=== PATIENT | female | born 1980 | race Caucasian/White ===

== ENCOUNTER → 2016-08-26 | Outpatient (CLI) | payer OTHER ==
--- NOTE | 2016-08-26 08:39 | US ---
"EXAMINATION TYPE: US abdomen complete DATE OF EXAM: 08/26/2016 7:17 AM COMPARISON: NONE CLINICAL HISTORY: R10.9 ABD PAIN. Pt states back pain that radiates to front of ABD x 5 months EXAM MEASUREMENTS: Liver Length: 13.7 cm Gallbladder Wall: 0.4 cm CBD: 0.4 cm Spleen: 8.2 cm Right Kidney: 10.4 x 3.7 x 4.6 cm Left Kidney: 10.7 x 4.7 x 4.0 cm TECHNOLOGIST IMPRESSION: Pancreas: wnl Liver: wnl Gallbladder: See below Evidence for sonographic Adams's sign: Yes CBD: wnl Spleen: wnl Right Kidney: wnl Left Kidney: wnl Upper IVC: wnl Abd Aorta: wnl The liver is homogenous. The intrahepatic portion of the IVC and visualized proximal, mid, and dista l abdominal aorta are within normal limits. Gallbladder is identified. Gallbladder has diffuse hypere choic material felt to reflect small stones or gallbladder sludge. There are additional shadowing mob ile gallstones identified. Gallbladder wall is minimally thickened at 4 mm. No pericholecystic fluid collection is identified. Common bile duct is unremarkable. The visualized portions of the pancreas are homogenous. The spleen is unremarkable. Kidneys are symmetric and free of hydronephrosis. No renal lesions are seen. IMPRESSION: There is gallbladder sludge and gallbladder stones with mild concentric gallbladder wall thickening and positive sonographic Adams's sign, in patient with pain acute cholecystitis cannot be excluded. Consider HIDA scan or surgical consultation. A Yellow message has been communicated to Ayo Gallegos MD via the [employer] | Critical Result sy stem on 08/26/2016 8:36 AM, Message ID [id number]."
== END | disposition home or self-care (01) ==
LOC: RADUSWWP 06:59
PROVIDERS: ATTEND Family Medicine
DX: K80.20 Calculus of gallbladder without cholecystitis without obstruction (principal); K82.8 Other specified diseases of gallbladder; R19.8 Other specified symptoms and signs involving the digestive system and abdomen
CPT/HCPCS: 76700

== ENCOUNTER → 2016-09-09 | Outpatient (CLI) | payer OTHER ==
--- NOTE | 2016-09-09 18:22 | NM ---
EXAMINATION TYPE: NM hepatobiliary wo EF DATE OF EXAM: 09/09/2016 5:58 PM COMPARISON: NONE HISTORY: Abdominal pain and cholecystitis TECHNIQUE: After the intravenous administration of 4.9 mCi Tc 99m Mebrofenin hepatobiliary scintigrap hy is performed. Immediate images post injection. FINDINGS: There is prompt uptake of the tracer by the liver that has normal size and contour. There is tracer i n the small bowel at 14 minutes which excludes obstruction of the common bile duct. Tracers mostly cl eared from the liver at one hour. Images were obtained up to 2 hours that show no evidence of any tra cer in the gallbladder. The remainder of the exam is unremarkable. IMPRESSION: No evidence of common bile duct obstruction. No focal liver defect. There is nonvisualization of the gallbladder consistent with cholecystitis and cystic duct obstructio n.
== END | disposition home or self-care (01) ==
LOC: RADNMMAIN 14:46
PROVIDERS: ATTEND Nurse Practitioner Family
DX: K81.9 Cholecystitis, unspecified (principal)
CPT/HCPCS: 78226; A9537

== ENCOUNTER 2016-10-29 07:55 | Day surgery (SDC) | payer OTHER ==
--- NOTE | 2016-10-17 08:50 | HP ---
DATE OF ADMISSION: 10/29/2016 CHIEF COMPLAINT: Chronic cholecystitis. HISTORY OF PRESENT ILLNESS: Patient is a 36-year-old female who starting in March had bad episodes of diarrhea associated with pain in the right upper quadrant and right side of her back. The patient has gallstones by ultrasound and a recent HIDA scan done in late August shows nonvisualization of the gallbladder consistent with cystic duct obstruction. The patient still had a mild right upper quadrant pain at times. She has modified her diet. Denies episodes of emesis. No change in the color of her skin, urine or stool. She did have a lab work showing normal liver enzymes. She has already seen GI and they are recommending cholecystectomy. Past medical history is asthma. Past surgical history is . MEDICATIONS: 1. Singulair. 2. Loratadine. 3. control. ALLERGIES: None. PHYSICAL EXAM: HEENT is normocephalic. Sclerae is nonicteric. CHEST: No deformities. ABDOMEN: Soft, mild right upper quadrant tenderness. No rebound or guarding. Extremities without edema. IMPRESSION: A 36-year-old female with chronic cholecystitis. PLAN: Will proceed with laparoscopic cholecystectomy on 10/29. The risks of bleeding, infection, biloma formation, common bile duct injury, retained CBD stone, trocar-related injury and conversion to an open procedure. Chronic diarrhea was also discussed as a potential risk. The patient understands and wishes to proceed.
[2016-10-24 11:19] VITALS: BMI 21.2
[~2016-10-29 07:55] MED LIST: DEXAMETHASONE SOD PHOSPHATE 10 MG/ML 1 ML VIAL IV ONE; HEPARIN SODIUM,PORCINE 5,000 UNIT/ML 1 ML VIAL SQ ONE; HYDROmorphone 1 MG/ML 1 ML SYRINGE IVP PRN; LACTATED RINGERS 1,000 ML IV SCH; LIDOCAINE 1% 20 ML VIAL (10MG/ML) FOR IV START INTRADERMA PRN; MIDAZOLAM 2 MG/2 ML VIAL IV PRN; ONDANSETRON 4 MG/2 ML VIAL IVP ONE; SCOPOLAMINE 1.5MG/72HR PATCH TRANSDERM ONE; ceFAZolin 2 GM in SODIUM CHLORIDE 0.9% 100 ML IVPB ONE
[2016-10-29] MEDS ORDERED: GLYCOPYRROLATE 0.2 MG/ML 2 ML VIAL ONE (09:27)
[2016-10-29] MEDS ORDERED: NEOSTIGMINE 1 MG/ML 10 ML VIAL ONE (09:27)
[2016-10-29] MEDS ORDERED: MIDAZOLAM 2 MG/2 ML VIAL ONE (09:27)
[2016-10-29] MEDS ORDERED: HYDROmorphone (PF) 1 MG/ML ONE (09:27)
[2016-10-29] MEDS ORDERED: PROPOFOL 10 MG/ML 20 ML VIAL IV ONE (09:27)
[2016-10-29] MEDS ORDERED: fentaNYL (PF) 50 MCG/ML 2 ML AMP ONE (09:27)
[2016-10-29] MEDS ORDERED: ROCURONIUM BROMIDE 10 MG/ML 10 ML VIAL IV ONE (09:27)
[2016-10-29] MEDS ORDERED: KETOROLAC 30 MG/ML 1 ML VIAL ONE (09:27)
[2016-10-29] MEDS ORDERED: LIDOCAINE 1% INJ 10MG/ML (20 ML MDV) ONE (09:27)
[2016-10-29] MEDS ORDERED: SUCCINYLCHOLINE CHLORIDE 100 MG/5 ML SYR IV ONE (09:27)
[2016-10-29] MEDS ORDERED: BUPIVACAIN-EPI 0.25%-1:200,000 30 ML VIAL SQ ONE (09:51)
[2016-10-29] MEDS ORDERED: LACTATED RINGERS 1,000 ML IV ONE (10:04)
[2016-10-29] MEDS ORDERED: traMADol 50 MG TAB PO PRN (10:38)
[2016-10-29] MEDS ORDERED: NALOXONE 0.4 MG/ML 1 ML VIAL IV PRN (10:38)
--- NOTE | 2016-10-29 10:40 | P.PCN ---
Date of Procedure: 10/29/16 Procedure(s) Performed: PREOPERATIVE DIAGNOSIS: Chronic cholecystitis POSTOPERATIVE DIAGNOSIS: Same with hydrops PROCEDURE: Laparoscopic cholecystectomy SURGEON: Kannan EBL: Minimal see anesthesia record ANESTHESIA: Gen. COMPLICATIONS: None OPERATIVE PROCEDURE: The patient was brought and placed on the operating room table in the supine position. The patient was placed under general anesthesia at that time. The abdomen was prepped and draped in the usual sterile fashion. A small vertical infraumbilical incision was made. The fascia was grasped with the Marilee forceps. The fascia was retracted anteriorly. The Veress needle was advanced into the peritoneal cavity. The saline drop test was normal. Insufflation took place up to 15 mmHg. A 5 mm optical trocar was advanced and the peritoneal cavity. 2 additional 5 mm trochars were placed in the right upper quadrant under direct visualization. A 10 mm trocar was advanced into the epigastric incision site. The gallbladder was retracted superiorly and laterally. The peritoneum overlying the infundibulum was bluntly dissected. The patient's cystic duct was visualized. The junction between the cystic duct common and hepatic duct was identified. The cystic duct was then divided after placement of 3 10 mm clips on the patient's side and one on the specimen side. The cystic artery was identified and clipped as well. A small vessel was seen along the gallbladder fossa and clipped as well. The gallbladder was then removed from the liver bed using electrocautery. The gallbladder was then removed from the epigastric trocar site with an Endo Catch bag. The gallbladder fossa was irrigated with saline. There was no evidence of any bleeding or biliary drainage seen. The trochars were then removed. The fascia at the 10 millimeter site was closed using a figure-of- eight 0 Vicryl stitch. The skin at all 4 sites was closed using a 4-0 Monocryl stitch. At the end of this procedure the sponge and needle counts were correct. DISPOSITION: Stable to the recovery room
[2016-10-29 10:43] VITALS: TEMP 96.9
[2016-10-29] MEDS ORDERED: PROMETHAZINE INJ 25 MG/ML 1 ML VIAL IVPB ONE (11:55)
[2016-10-29] MEDS ORDERED: traMADol 50 MG TAB PO ONE (12:55)
[2016-10-29 14:32] VITALS: BP 97/65; PULSE 81; RESP 16
== END 2016-10-29 15:18 | disposition home or self-care (01) ==
LOC: OR 07:55
PROVIDERS: ATTEND Surgery
DX: K80.10 Calculus of gallbladder with chronic cholecystitis without obstruction (principal); J45.909 Unspecified asthma, uncomplicated; Z79.3 Long term (current) use of hormonal contraceptives; Z79.899 Other long term (current) drug therapy
CPT/HCPCS: 81025; 88304; 47562; J2250; J1644; J1100; J2550; J2710; J0690; J2405; J2001; J3010; J1885; J1170; J0330; J2704

== ENCOUNTER → 2020-05-17 | Outpatient (CLI) | payer OTHER ==
--- NOTE | 2020-05-18 09:37 | MM ---
Reason for exam: screening (asymptomatic). Baseline mammogram. History: Family history of breast cancer in maternal grandmother at age 55. Taking hormonal contraceptives beginning at age 21. Physical Findings: Nurse did not find any significant physical abnormalities on exam. MG 3D Screening Mammo W/Cad Bilateral CC and MLO view(s) were taken. The breast tissue is extremely dense which could obscure a lesion on mammography. These results were verbally communicated with the patient and result sheet given to the patient on 05/17/20. ASSESSMENT: Negative, BI-RAD 1 RECOMMENDATION: Routine screening mammogram of both breasts in 1 year.
== END | disposition home or self-care (01) ==
LOC: RADMAMWWP 14:15
PROVIDERS: ATTEND Obstetrics & Gynecology
DX: Z12.31 Encounter for screening mammogram for malignant neoplasm of breast (principal); Z80.3 Family history of malignant neoplasm of breast
CPT/HCPCS: 77063; 77067

== ENCOUNTER → 2020-09-18 | Outpatient (CLI) | payer OTHER ==
--- NOTE | 2020-09-19 08:54 | CT ---
EXAMINATION TYPE: CT sinus wo con DATE OF EXAM: 09/18/2020 COMPARISON: None HISTORY: chronic sinus congestion CT DLP: 429.4 mGycm CONTRAST: None The paranasal sinuses are examined in the axial plane at 2 mm thick sections. Reconstructed images i n the coronal plane were obtained. Maxillary spine appears intact. No acute osseous abnormality is evident. The maxillary sinuses are clear. The ethmoid air cells are clear. The sphenoid sinuses are clear. The frontal sinuses are clear. Mastoid air cells are clear. The septum is evaluated. There is septal deviation to the left. A patent hiatus semilunaris is not clearly identified on these images. However, no significant mucosa l thickening or retention cysts are evident. There may be some hilar air cells present. There is a ri ght rusty bullosa. Uncinate processes appear normal. IMPRESSIONS: 1. Normal paranasal sinus study. No acute or chronic sinusitis evident. 2. Left septal deviation. 3. Clear of patency of the ostiomeatal units is not identified. However, no secondary signs of obstru ction are evident.
== END | disposition home or self-care (01) ==
LOC: RADCTMAIN 17:22
PROVIDERS: ATTEND Family Medicine
DX: J34.2 Deviated nasal septum (principal)
CPT/HCPCS: 70486